=== PATIENT | female | born 2000 | race Caucasian/White ===

== ENCOUNTER 2023-01-24 07:49 | Emergency (ER) | payer BC ==
[~2023-01-24] VITALS: Ht 167.6 cm; Wt 56.7 kg
[2023-01-24 08:08] VITALS: BP_SYST 116
--- NOTE | 2023-01-24 08:09 | NUR ---
Patient BIB from home by boyfriend. Chief Complaint: URI SX x4 d with painful cough and inspiration. Patient also reports ear pain. Patient states pain is 10/10 in her head. Patient is a&ox4 and stable. Patient reports hx of Asthma. Denies Allergies. Patient denies taking any tylenol or ibuprofen for pain in the last 6h.
--- NOTE | 2023-01-24 08:09 | NUR ---
Patient to ER bed 7 to gown for evaluation. Side rails up. Report given to ANDREW MELENDEZ.
--- NOTE | 2023-01-24 08:10 | NUR ---
ER Dr. Harris at bedside examining patient.
--- NOTE | 2023-01-24 08:19 | NUR ---
COVID AND FLU NASAL SAMPLE COLLECTED AT BEDSIDE AND SENT TO LAB
--- NOTE | 2023-01-24 08:30 | NUR ---
Per Dr. Harris's verbal order give 800mg of ibuprofen po now. Patient verified name and , denies allergeis and agrees to ibuprofen administration. Patient swallowed medication without difficulty.
[2023-01-24] MEDS ORDERED: IBUPROFEN 800 MG TABLET ONE (08:31)
--- NOTE | 2023-01-24 08:43 | NUR ---
Radiology at bedside now for ordered chest xray.
[2023-01-24 09:39] VITALS: BP_SYST 94
--- NOTE | 2023-01-24 09:42 | NUR ---
Patient reports pain improving, 5/10.
[2023-01-24] MEDS ORDERED: PRED20TA PO (10:04)
[2023-01-24] MEDS ORDERED: ALBMDI INH (10:04)
[2023-01-24] MEDS ORDERED: ZIT250 PO (10:04)
--- NOTE | 2023-01-24 10:11 | NUR ---
Patient given written and verbal discharge instructions and verbalizes understanding. ER MD Harris discussed with patient the results and treatment provided. Patient in stable condition. ID arm band removed. Rx sent to pharmacy on file. Patient educated on pain management and to follow up with PMD. Pain Scale . Opportunity for questions provided and answered.
== END 2023-01-24 10:11 | disposition home or self-care (01) ==
LOC: SED 07:49
DX: J18.9 Pneumonia, unspecified organism (principal); J45.909 Unspecified asthma, uncomplicated; R05.9 Cough, unspecified; R09.81 Nasal congestion; M79.10 Myalgia, unspecified site; Z79.899 Other long term (current) drug therapy; Z20.822 Contact with and (suspected) exposure to COVID-19
CPT/HCPCS: 36415; 71045; 81025; 99284

== ENCOUNTER 2023-01-26 01:08 | Emergency (ER) | payer BC ==
[~2023-01-26] VITALS: Ht 160 cm; Wt 58.1 kg
[~2023-01-26 01:08] MED LIST: ALBMDI INH; PRED20TA PO; ZIT250 PO
[2023-01-26 01:18] VITALS: BP_SYST 117
[2023-01-26 03:30] VITALS: BP_SYST 117
== END 2023-01-26 03:30 | disposition home or self-care (01) ==
LOC: SED 01:08
DX: J18.9 Pneumonia, unspecified organism (principal); R50.9 Fever, unspecified; R05.9 Cough, unspecified; J45.909 Unspecified asthma, uncomplicated; Z79.899 Other long term (current) drug therapy
CPT/HCPCS: 71046-TC; 99283

== ENCOUNTER 2023-01-30 13:11 | Inpatient (IN) | payer BC ==
[~2023-01-30] VITALS: Ht 160 cm; Wt 58.6 kg
[2023-01-30 13:12] VITALS: BP_SYST 119; PULSE 86; RESP 18; TEMP 98.1; O2SAT 99
[2023-01-30] MEDS ORDERED: NACL 0.9% 1,000 ML IV ONE (13:30)
[2023-01-30 13:55] LABS: BASOPHILS # (AUTO) 0.1 K/uL (0.0-0.2); BASOPHILS % (AUTO) 0.5 % (0.0-2.0); EOSINOPHILS # (AUTO) 0.1 K/uL (0.0-0.4); EOSINOPHILS % (AUTO) 0.9 % (0.0-4.0); HEMATOCRIT 40.6 % (36-48); HEMOGLOBIN 13.6 g/dL (12.0-16.0); LYMPHOCYTES # (AUTO) 3.2 K/uL (1.0-5.5); LYMPHOCYTES % (AUTO) 29.6 % (20.5-51.5); MEAN CORPUSCULAR HEMOGLOBIN 29 pg (27-31); MEAN CORPUSCULAR HGB CONC 34 % (32-36); MEAN CORPUSCULAR VOLUME 88 fL (79.0-98.0); MONOCYTES # (AUTO) 0.9 K/uL (0.0-1.0); MONOCYTES % (AUTO) 8.2 % (1.7-9.3); NEUTROPHILS # (AUTO) 6.6 K/uL (1.8-7.7); NEUTROPHILS % (AUTO) 60.8 % (40.0-70.0); PLATELET COUNT (AUTO) 404 K/uL (130-430); RED BLOOD CELL COUNT(AUTO) 4.63 MIL/uL (4.2-6.2); RED CELL DISTRIBUTION WIDTH 13.5 % (9.0-15.0); WHITE BLOOD COUNT (AUTO) 10.9 K/uL (4.8-10.8)
[2023-01-30 14:07] LABS: CALCIUM 8.7 mg/dL (8.4-11.0); CREATININE 0.67 mg/dL (0.55-1.30)
[2023-01-30 14:22] LABS: ALBUMIN 3.5 g/dL (3.4-4.8); TOTAL BILIRUBIN 0.4 mg/dL (0.0-1.0)
[2023-01-30 14:24] LABS: BILIRUBIN,URINE NEGATIVE (NEGATIVE); BLOOD, URINE NEGATIVE (NEGATIVE); CLARITY/URINE CLEAR (CLEAR); COLOR,URINE YELLOW (YELLOW); GLUCOSE,URINE NEGATIVE (NEGATIVE); KETONES,URINE NEGATIVE (NEGATIVE); LEUKOCYTE ESTERASE ,URINE NEGATIVE (NEGATIVE); NITRITE, URINE NEGATIVE (NEGATIVE); PH,URINE 7.5 (5.0-8.0); PROTEIN URINE NEGATIVE (NEGATIVE); UROBILINOGEN,URINE 0.2 (0.2-1.0)
[2023-01-30] MEDS ORDERED: ALBUTEROL SULFATE 0.083% 2.5 MG/3 ML VIAL.NEB INH ONE (15:45)
[2023-01-30] MEDS ORDERED: PIPERACILLIN/TAZO 3.375 GM in NS 50 ML IV ONE (18:00)
[2023-01-30] MEDS ORDERED: methylPREDNISolone SOD SUCC/PF 62.5 MG/ML VIAL IVP ONE (18:00)
[2023-01-30] MEDS ORDERED: PIPERACILLIN/TAZOBACTAM 3.375 GM/VIAL (ZOSYN) IV ONE ×2 (18:28→23:40)
[2023-01-30 19:04] VITALS: BP_SYST 101; PULSE 98; RESP 20; TEMP 98.3; O2SAT 98
[2023-01-30] MEDS ORDERED: POTASSIUM CHLORIDE 20 MEQ TAB.PRT.SR PO PRN (19:15)
[2023-01-30] MEDS ORDERED: MORPHINE 2 MG/ML INJ. SYRINGE IVP PRN ×2 (19:15)
[2023-01-30] MEDS ORDERED: NALOXONE HCL 0.4 MG/ML AMP (NARCAN) IVP PRN ×2 (19:15)
[2023-01-30] MEDS ORDERED: LORazepam 2 MG/ML VIAL IVP PRN (19:15)
[2023-01-30] MEDS ORDERED: MAGNESIUM SULFATE 50 ML IV PRN (19:15)
[2023-01-30] MEDS ORDERED: ONDANSETRON HCL 4 MG/2 ML VIAL IVP PRN (19:15)
[2023-01-30] MEDS ORDERED: DOCUSATE SODIUM 100 MG CAPSULE PO PRN (19:15)
[2023-01-30] MEDS ORDERED: ACETAMINOPHEN 325 MG TABLET PO PRN (19:15)
[2023-01-30] MEDS ORDERED: MUPIROCIN 2% TOPICAL OINTMENT 22 GM NS PRN (19:15)
[2023-01-30 20:00] VITALS: BP_SYST 135; PULSE 84; RESP 20; TEMP 97.8
[2023-01-30] MEDS: METHYLPREDNISOLONE SOD SUCC 40 MG/ML VIAL IVP SCH (22:05)
[2023-01-31] VITALS (10 sets, daily range): BP systolic 93–119; PULSE 83–112; RESP 15–19; TEMP 97.2–98.2; O2SAT 95–100
[2023-01-31] MEDS: PIPERACILLIN/TAZO 3.375/DEX-IS 50 ML IV SCH ×4 (01:39→18:22)
[2023-01-31 07:53] LABS: HEMATOCRIT 40.2 % (36-48); HEMOGLOBIN 13.4 g/dL (12.0-16.0); LYMPHOCYTES # (AUTO) 1.2 K/uL (1.0-5.5); MEAN CORPUSCULAR HEMOGLOBIN 29 pg (27-31); MEAN CORPUSCULAR HGB CONC 33 % (32-36); MEAN CORPUSCULAR VOLUME 88 fL (79.0-98.0); MONOCYTES # (AUTO) 0.2 K/uL (0.0-1.0); MONOCYTES % (AUTO) 2.2 % (1.7-9.3); NEUTROPHILS # (AUTO) 9.8 K/uL (1.8-7.7); NEUTROPHILS % (AUTO) 86.8 % (40.0-70.0); PLATELET COUNT (AUTO) 424 K/uL (130-430); RED BLOOD CELL COUNT(AUTO) 4.59 MIL/uL (4.2-6.2); RED CELL DISTRIBUTION WIDTH 13.2 % (9.0-15.0); WHITE BLOOD COUNT (AUTO) 11.3 K/uL (4.8-10.8)
[2023-01-31 08:09] LABS: CALCIUM 9.1 mg/dL (8.4-11.0); CREATININE 0.65 mg/dL (0.55-1.30)
[2023-01-31] MEDS: METHYLPREDNISOLONE SOD SUCC 40 MG/ML VIAL IVP SCH ×2 (08:30→20:30)
[2023-01-31] MEDS: ALBUTEROL SULFATE 0.083% 2.5 MG/3 ML VIAL.NEB INH PRN (14:43)
[2023-02-01 00:47] VITALS: BP_SYST 89; PULSE 75; RESP 15; TEMP 98; O2SAT 98
[2023-02-01] MEDS: PIPERACILLIN/TAZO 3.375/DEX-IS 50 ML IV SCH ×2 (05:15)
[2023-02-01 06:48] LABS: HEMATOCRIT 38.4 % (36-48); HEMOGLOBIN 12.8 g/dL (12.0-16.0); LYMPHOCYTES # (AUTO) 1.1 K/uL (1.0-5.5); LYMPHOCYTES % (AUTO) 7.6 % (20.5-51.5); MEAN CORPUSCULAR HEMOGLOBIN 29 pg (27-31); MEAN CORPUSCULAR HGB CONC 33 % (32-36); MEAN CORPUSCULAR VOLUME 87 fL (79.0-98.0); MONOCYTES # (AUTO) 0.7 K/uL (0.0-1.0); NEUTROPHILS # (AUTO) 13.1 K/uL (1.8-7.7); NEUTROPHILS % (AUTO) 87.4 % (40.0-70.0); PLATELET COUNT (AUTO) 439 K/uL (130-430); RED BLOOD CELL COUNT(AUTO) 4.42 MIL/uL (4.2-6.2); RED CELL DISTRIBUTION WIDTH 13.6 % (9.0-15.0)
[2023-02-01 07:02] LABS: CALCIUM 8.6 mg/dL (8.4-11.0); CREATININE 0.58 mg/dL (0.55-1.30)
[2023-02-01 08:30] VITALS: O2SAT 100
[2023-02-01 08:40] VITALS: O2SAT 100
[2023-02-01 09:05] VITALS: BP_SYST 89; PULSE 82; RESP 16; TEMP 97.5; O2SAT 99
[2023-02-01] MEDS: METHYLPREDNISOLONE SOD SUCC 40 MG/ML VIAL IVP SCH (09:09)
[2023-02-01] MEDS: ALBUTEROL SULFATE 0.083% 2.5 MG/3 ML VIAL.NEB INH PRN (09:40)
[2023-02-01 11:18] VITALS: BP_SYST 114; PULSE 82; RESP 14; TEMP 98.4; O2SAT 98
[2023-02-01 11:29] VITALS: BP_SYST 99; PULSE 76; RESP 19; TEMP 98.2; O2SAT 100
== END 2023-02-01 13:05 | disposition home or self-care (01) | DRG 141 ==
LOC: SED 13:11 → STU 17:50
PROVIDERS: ADMIT Family Medicine; ATTEND Family Medicine
DX: J45.41 Moderate persistent asthma with (acute) exacerbation (principal); E83.41 Hypermagnesemia; D72.829 Elevated white blood cell count, unspecified; F41.9 Anxiety disorder, unspecified; Z20.822 Contact with and (suspected) exposure to COVID-19; R06.03 Acute respiratory distress; Z79.899 Other long term (current) drug therapy
CPT/HCPCS: 36415; 71045; 71250-TC; 76376; 80048; 80053; 81003; 83605; 83735; 85025; 85379; 87040; 93005; 94640; 94760; 96365; 99285; G0378; J1030; J2060; J2543; J2930; J7030; J7060; J7613